=== PATIENT | female | born 1975 | race Caucasian/White ===

== ENCOUNTER → 2016-12-03 | Outpatient (CLI) | payer OTHER ==
[~2016-12-03] MED LIST: PRENTAB26 PO
[2016-12-03 10:12] LABS: BASO % 0.2 %; BASO ABS # 0.02 K/uL (0-0.2); COMPLETE YES; EOS % 0.6 %; HEMATOCRIT 37.7 % (37-47); IG% 0.4 %; LYMPH % 22.5 %; LYMPH ABS # 2.45 K/uL (1.2-3.4); MEAN CELL VOLUME 88.5 fL (80-100); MEAN PLATELET VOLUME 9.1 fL (7.4-10.4); NEUT % 70.3 %; PLATELET COUNT 293 K/uL (130-400); RED BLOOD COUNT 4.26 M/uL (4.2-5.4); WHITE BLOOD COUNT 10.88 K/uL (4.8-10.8)
[2016-12-06 12:24] LABS: CHLAMYDIA TRACH RNA*** NOT DETECTED (NOT DETECTED); GC (NEIS GONORRHOEAE)RNA** NOT DETECTED (NOT DETECTED)
== END | disposition home or self-care (01) ==
LOC: C.LAB1850 09:00
PROVIDERS: ATTEND Obstetrics & Gynecology
DX: O09.529 Supervision of elderly multigravida, unspecified trimester (principal)

== ENCOUNTER → 2016-12-03 | Outpatient (CLI) | payer OTHER | END | disposition home or self-care (01) | LOC: C.PAPS 11:37 | PROVIDERS: ATTEND Obstetrics & Gynecology | DX: O09.529 Supervision of elderly multigravida, unspecified trimester (principal) ==

== ENCOUNTER → 2016-12-24 | Outpatient (CLI) | payer OTHER ==
[2016-12-26 14:51] LABS: AFP CONCENTRATION 62.8 NG/ML; AFP MULTIPLE OF MEDIAN 2.52; AFPTS GESTATIONAL AGE 16.4 WEEKS; AFPTS INSULIN DEP DIABETIC? YES; AFPTS MATERNAL WT 211 LBS; ALPHA-FETOPROTEIN RACE CAUCASIAN=W; HISTORY OF NTD NO; REPEAT SAMPLE? NO
== END | disposition home or self-care (01) ==
LOC: C.LAB1850 09:23 → EDSTATUS 12-27 10:46
PROVIDERS: ATTEND Obstetrics & Gynecology
DX: O09.529 Supervision of elderly multigravida, unspecified trimester (principal)

== ENCOUNTER → 2017-03-17 | Outpatient (CLI) | payer OTHER ==
[2017-03-17 12:20] LABS: URINE APPEARANCE CLEAR (CLEAR); URINE BILIRUBIN NEG (NEG); URINE COLOR YELLOW; URINE EPITHELIAL CELL AUTO >30 /lpf (0-5); URINE NITRITE NEG (NEG); URINE PH 6.5 (4.5-7.5); URINE SPECIFIC GRAVITY 1.017 (1.000-1.030); UROBILINOGEN NEG (NEG)
[2017-03-17 12:22] LABS: MANUAL MICROSCOPIC REQUIRED? NO; REVIEW REQ? NO
== END | disposition home or self-care (01) ==
LOC: C.LABSPEC 12:00
PROVIDERS: ATTEND Obstetrics & Gynecology
DX: O24.410 Gestational diabetes mellitus in pregnancy, diet controlled (principal); Z3A.00 Weeks of gestation of pregnancy not specified

== ENCOUNTER → 2017-03-18 | Outpatient (CLI) | payer OTHER ==
[2017-03-18 11:18] LABS: PATIENT HEIGHT 157.5 cm
[2017-03-18 13:02] LABS: HEMATOCRIT 33.1 % (37-47); MEAN CELL VOLUME 91.9 fL (80-100); MEAN CORPUSCULAR HEMOGLOBIN 31.7 pg (25-34); MEAN CORPUSCULAR HGB CONC 34.4 g/dl (32-36); PLATELET COUNT 327 K/uL (130-400); WHITE BLOOD COUNT 13.49 K/uL (4.8-10.8)
[2017-03-18 13:43] LABS: ALKALINE PHOSPHATASE 77 U/L (45-117); ALT/SGPT 15 U/L (12-78); AST/SGOT 13 U/L (15-37); CREATININE 0.74 mg/dl (0.60-1.20)
[2017-03-18 13:48] LABS: URIC ACID 4.6 mg/dl (2.6-7.2)
[2017-03-18 16:33] LABS: CREATININE 0.74 mg/dl (0.6-1.2)
== END | disposition home or self-care (01) ==
LOC: C.LAB1850 11:13
PROVIDERS: ATTEND Obstetrics & Gynecology
DX: O13.9 Gestational [pregnancy-induced] hypertension without significant proteinuria, unspecified trimester (principal)

== ENCOUNTER → 2017-03-24 | Outpatient (CLI) | payer OTHER ==
[2017-03-24 17:37] LABS: HEMATOCRIT 33.5 % (37-47); MEAN CELL VOLUME 91.5 fL (80-100); MEAN CORPUSCULAR HEMOGLOBIN 31.4 pg (25-34); MEAN CORPUSCULAR HGB CONC 34.3 g/dl (32-36); PLATELET COUNT 335 K/uL (130-400); RED BLOOD COUNT 3.66 M/uL (4.2-5.4); WHITE BLOOD COUNT 12.06 K/uL (4.8-10.8)
[2017-03-24 18:55] LABS: ALKALINE PHOSPHATASE 82 U/L (45-117); ALT/SGPT 19 U/L (12-78); AST/SGOT 16 U/L (15-37)
== END | disposition home or self-care (01) ==
LOC: C.LAB1850 16:50
PROVIDERS: ATTEND Obstetrics & Gynecology
DX: O13.3 Gestational [pregnancy-induced] hypertension without significant proteinuria, third trimester (principal)

== ENCOUNTER → 2017-03-31 | Outpatient (CLI) | payer OTHER ==
[2017-03-31 17:22] LABS: HEMATOCRIT 32.3 % (37-47); MEAN CELL VOLUME 90.2 fL (80-100); MEAN CORPUSCULAR HEMOGLOBIN 30.4 pg (25-34); MEAN CORPUSCULAR HGB CONC 33.7 g/dl (32-36); MEAN PLATELET VOLUME 8.8 fL (7.4-10.4); PLATELET COUNT 314 K/uL (130-400); RED BLOOD COUNT 3.58 M/uL (4.2-5.4); WHITE BLOOD COUNT 11.86 K/uL (4.8-10.8)
[2017-03-31 17:56] LABS: ALKALINE PHOSPHATASE 79 U/L (45-117); ALT/SGPT 17 U/L (12-78); AST/SGOT 14 U/L (15-37)
== END | disposition home or self-care (01) ==
LOC: C.LAB1850 16:31
PROVIDERS: ATTEND Obstetrics & Gynecology
DX: O13.3 Gestational [pregnancy-induced] hypertension without significant proteinuria, third trimester (principal)

== ENCOUNTER → 2017-04-21 | Outpatient (CLI) | payer OTHER ==
[2017-04-21 12:31] LABS: HEMATOCRIT 33.8 % (37-47); MEAN CELL VOLUME 91.4 fL (80-100); MEAN CORPUSCULAR HEMOGLOBIN 30.3 pg (25-34); MEAN CORPUSCULAR HGB CONC 33.1 g/dl (32-36); MEAN PLATELET VOLUME 9.2 fL (7.4-10.4); PLATELET COUNT 326 K/uL (130-400); WHITE BLOOD COUNT 10.17 K/uL (4.8-10.8)
[2017-04-21 13:42] LABS: ALKALINE PHOSPHATASE 90 U/L (45-117); ALT/SGPT 16 U/L (12-78); AST/SGOT 13 U/L (15-37)
== END | disposition home or self-care (01) ==
LOC: C.LAB1850 10:35
PROVIDERS: ATTEND Obstetrics & Gynecology
DX: O13.3 Gestational [pregnancy-induced] hypertension without significant proteinuria, third trimester (principal)

== ENCOUNTER → 2017-04-29 | Outpatient (CLI) | payer OTHER ==
[2017-04-29 17:15] LABS: BASO % 0.2 %; BASO ABS # 0.02 K/uL (0-0.2); COMPLETE YES; EOS % 0.7 %; HEMATOCRIT 34.3 % (37-47); IG% 0.4 %; LYMPH % 19.4 %; LYMPH ABS # 2.23 K/uL (1.2-3.4); MEAN CORPUSCULAR HEMOGLOBIN 30.8 pg (25-34); MEAN CORPUSCULAR HGB CONC 33.8 g/dl (32-36); MEAN PLATELET VOLUME 9.4 fL (7.4-10.4); MONO % 8.6 %; NEUT % 70.7 %; PLATELET COUNT 306 K/uL (130-400); RED BLOOD COUNT 3.77 M/uL (4.2-5.4); WHITE BLOOD COUNT 11.51 K/uL (4.8-10.8)
[2017-04-29 17:38] LABS: ALKALINE PHOSPHATASE 111 U/L (45-117); ALT/SGPT 18 U/L (12-78); AST/SGOT 20 U/L (15-37)
== END | disposition home or self-care (01) ==
LOC: C.LAB1850 16:40
PROVIDERS: ATTEND Obstetrics & Gynecology
DX: O14.00 Mild to moderate pre-eclampsia, unspecified trimester (principal)

== ENCOUNTER → 2017-05-06 | Outpatient (CLI) | payer OTHER | END | disposition home or self-care (01) | LOC: C.LABSPEC 17:43 | PROVIDERS: ATTEND Obstetrics & Gynecology | DX: O24.410 Gestational diabetes mellitus in pregnancy, diet controlled (principal); Z3A.00 Weeks of gestation of pregnancy not specified ==

== ENCOUNTER → 2017-05-13 | Outpatient (CLI) | payer OTHER ==
[2017-05-13 13:30] LABS: HEMATOCRIT 34.1 % (37-47); MEAN CELL VOLUME 90.5 fL (80-100); MEAN CORPUSCULAR HEMOGLOBIN 30.5 pg (25-34); MEAN CORPUSCULAR HGB CONC 33.7 g/dl (32-36); MEAN PLATELET VOLUME 9.4 fL (7.4-10.4); PLATELET COUNT 343 K/uL (130-400); RED BLOOD COUNT 3.77 M/uL (4.2-5.4); WHITE BLOOD COUNT 10.21 K/uL (4.8-10.8)
[2017-05-13 13:52] LABS: ALT/SGPT 18 U/L (12-78); BLOOD UREA NITROGEN 9 mg/dl (7-18); BUN/CREATININE RATIO 17.6 (10-20); CARBON DIOXIDE 23 mmol/L (21-32); CHLORIDE 107 mmol/L (98-107); GLUCOSE 83 mg/dl (70-99); POTASSIUM 3.6 mmol/L (3.5-5.1); SODIUM 141 mmol/L (136-145)
[2017-05-13 13:54] LABS: CALCIUM 8.7 mg/dl (8.5-10.1)
[2017-05-13 13:55] LABS: ALB/GLOB RATIO 0.5 (0.9-2); ALKALINE PHOSPHATASE 123 U/L (45-117); AST/SGOT 14 U/L (15-37)
== END | disposition home or self-care (01) ==
LOC: C.LAB1850 11:38
PROVIDERS: ATTEND Obstetrics & Gynecology
DX: O14.03 Mild to moderate pre-eclampsia, third trimester (principal)

== ENCOUNTER 2017-05-21 19:00 | Outpatient (CLI) | payer OTHER ==
[~2017-05-21] VITALS: Ht 157.5 cm; Wt 100.0 kg
[2017-05-21 20:54] VITALS: Ht 157.5 cm; Wt 100.0 kg
[2017-05-22] MEDS ORDERED: PRENTAB26 PO (08:15)
== END 2017-05-21 21:20 | disposition home or self-care (01) ==
LOC: C.OPB 19:00 → C.LD 19:00 → C.OPB 21:20
PROVIDERS: ATTEND Obstetrics & Gynecology
DX: O14.03 Mild to moderate pre-eclampsia, third trimester (principal); O24.419 Gestational diabetes mellitus in pregnancy, unspecified control

== ENCOUNTER 2017-05-22 07:52 | Inpatient (IN) | payer OTHER ==
[2017-05-21] MEDS: DOCUSATE SODIUM 100 MG CAP PO SCH (22:00)
[~2017-05-22] VITALS: Ht 157.5 cm; Wt 97.7 kg
[2017-05-22] MEDS ORDERED: OXYTOCIN 30 UNITS/500ML NSS IV PRN ×2 (08:00→17:30)
[2017-05-22] MEDS ORDERED: LACTATED RINGER'S 1000ML 1,000 ML IV PRN (08:00)
[2017-05-22] MEDS ORDERED: LACTATED RINGER'S 1000ML 500 ML IV PRN (08:00)
[2017-05-22] MEDS ORDERED: PRENTAB26 PO (08:15)
[2017-05-22] MEDS ORDERED: LACTATED RINGER'S 1000ML 1,000 ML IV SCH (08:30)
[2017-05-22 08:37] LABS: HEMATOCRIT 34.6 % (37-47); MEAN CELL VOLUME 89.4 fL (80-100); MEAN CORPUSCULAR HEMOGLOBIN 29.7 pg (25-34); MEAN CORPUSCULAR HGB CONC 33.2 g/dl (32-36); MEAN PLATELET VOLUME 9.3 fL (7.4-10.4); PLATELET COUNT 285 K/uL (130-400); RED BLOOD COUNT 3.87 M/uL (4.2-5.4); WHITE BLOOD COUNT 13.25 K/uL (4.8-10.8)
[2017-05-22 09:07] VITALS: Ht 157.5 cm; Wt 97.7 kg
[2017-05-22] MEDS ORDERED: BENZOCAINE 20% AER SPR 82.5 GM CAN EXT PRN (17:30)
[2017-05-22] MEDS ORDERED: SUPERCREAM 0.870 % 15GM JAR EXT PRN (17:30)
[2017-05-22] MEDS ORDERED: LANOLIN OINT EXT PRN ×2 (17:30)
[2017-05-22] MEDS ORDERED: HYDROCORTISONE ACETATE 25 MG SUPP PR PRN (17:30)
[2017-05-22] MEDS ORDERED: OXYCODONE/ACETAMINOPHEN 5-325 TAB PO PRN (17:30)
[2017-05-22 20:45] VITALS: BP 149/95; PULSE 95; TEMP 36.9
--- NOTE | 2017-05-22 23:08 | DELIVERY SUMMARY ---
DATE OF OPERATION: 05/22/2017 PREDELIVERY DIAGNOSES: 1. 42-year-old G5, P3-0-1-3 at 37 weeks 5 days. 2. Preeclampsia without severe features. 3. Gestational diabetes mellitus, diet controlled. 4. Positive alpha fetoprotein for neural tube defects, normal anatomy scan on ultrasound per [facility]. 5. Advanced maternal age. POSTDELIVERY DIGNOSES: Same. PROCEDURE: Spontaneous vaginal delivery. FINDINGS: Viable female , Apgars 8 and 9, weight pending. Please see nursery notes. EBL: 300ml DESCRIPTION OF PROCEDURE: The patient progressed to complete and began to push. She spontaneously vaginally delivered a viable female from the cephalic presentation. The head delivered, followed by the anterior shoulder, followed by the posterior shoulder, followed by the body. The baby was warmed and dried and a spontaneous cry was heard. Using delayed cord clamping technique, the cord was doubly clamped and cut. Cord blood was obtained. The placenta was then delivered spontaneously intact with a 3-vessel cord. Pitocin was given. The uterus began to become firm. The uterus and vagina were swept of all clots and debris. The cervix, vagina and perineum were inspected and a superficial laceration was noted. This was hemostatic and patient elected to forgo repair. Excellent hemostasis was again noted. Sponge and instrument counts were correct at the conclusion of the delivery, x2. Mother and baby recovered in stable and good condition in the room. I attest to the content of the Intraoperative Record and any orders documented therein. Any exceptions are noted below. HERIBERTO
[2017-05-22 23:35] VITALS: BP 147/98; PULSE 77; TEMP 36.4; O2SAT 97
[2017-05-23 04:20] VITALS: BP 132/89; PULSE 84; TEMP 36.7; O2SAT 98
[2017-05-23] MEDS: IBUPROFEN 600 MG TAB PO PRN ×2 (04:33→19:54)
[2017-05-23 07:11] LABS: HEMATOCRIT 30.9 % (37-47)
--- NOTE | 2017-05-23 07:22 | Progress Note ---
Subjective May 23, 2017. Subjective conversation w/ patient, physical exam Ambulation: ambulating normally Voiding: no voiding problems Passing Gas: Yes Diet Tolerance: Regular Diet Lochia: Moderate Feeding Type: Breast Feeding Pain: controlled Review of Systems Constitutional: No problem reported Respiratory: No problem reported Cardiac: No problem reported Breast: No problem reported Abdomen: No problem reported Female : No problem reported Objective Vital Signs Date Time Temp Pulse Resp B/P (MAP) Pulse Ox O2 Delivery O2 Flow Rate FiO2 05/23/17 04:20 36.7 84 18 132/89 05/23/17 04:20 36.7 84 18 132/89 (103) 98 Room Air 05/22/17 23:35 Room Air 05/22/17 23:35 36.4 77 18 147/98 (114) 97 Room Air 05/22/17 20:45 36.9 95 18 149/95 Physical Exam General Appearance: WELL-APPEARING, NO APPARENT DISTRESS Respiratory/Chest: no respiratory distress Cardiovascular: regular rate, rhythm Abdomen: non tender, soft Fundus: Firm Extremities: normal inspection, no calf tenderness Laboratory Results Last 24 Hours Test 05/22/17 08:20 05/22/17 09:02 05/22/17 11:11 05/22/17 13:03 White Blood Count 13.25 K/uL Red Blood Count 3.87 M/uL Hemoglobin 11.5 g/dL Hematocrit 34.6 % Mean Corpuscular Volume 89.4 fL Mean Corpuscular Hemoglobin 29.7 pg Mean Corpuscular Hemoglobin Concent 33.2 g/dl RDW Standard Deviation 42.5 fL RDW Coefficient of Variation 13.1 % Platelet Count 285 K/uL Mean Platelet Volume 9.3 fL Bedside Glucose 98 mg/dl 75 mg/dl 84 mg/dl Test 05/22/17 16:05 05/23/17 06:51 05/23/17 07:06 Bedside Glucose 108 mg/dl Hemoglobin 10.3 g/dL Hematocrit 30.9 % Assessment and Plan Post- Day#: 1 Continue Routine Care: PPD#1 doing well. CMP pending. Continue routine care.
[2017-05-23] MEDS: PRENATAL VITAMIN TAB PO SCH (08:00)
[2017-05-23] MEDS: DOCUSATE SODIUM 100 MG CAP PO SCH ×2 (08:00→19:54)
[2017-05-23 08:15] VITALS: BP 133/90; PULSE 78; TEMP 36.8
[2017-05-23 08:23] LABS: BUN/CREATININE RATIO 15.6 (10-20); CALCIUM 8.6 mg/dl (8.5-10.1); CREATININE 0.54 mg/dl (0.60-1.20); POTASSIUM 3.7 mmol/L (3.5-5.1)
[2017-05-23 08:26] LABS: ALB/GLOB RATIO 0.5 (0.9-2)
[2017-05-23 11:50] VITALS: BP 147/98; PULSE 87; TEMP 36.7
[2017-05-23 15:49] VITALS: BP 130/85; PULSE 87; TEMP 36.9
[2017-05-23] MEDS ORDERED: BISACODYL 5 MG TABEC PO SCH (20:00)
--- NOTE | 2017-05-23 22:58 | Discharge Instructions ---
Discharge Instructions Date of Service May 23, 2017. Admission Reason for Admission: Induction Discharge Discharge Diagnosis / Problem: s/p delivery Discharge Goals Goal(s): Routine recovery after delivery Medications Continue Dispensed Medications: supercream, dermaplast, tucks, lansinoh Activity Recommendations Activity Limitations: as noted below . Instructions / Follow-Up Instructions / Follow-Up ACTIVITY RECOMMENDATIONS: * Gradual return to full activity over the next 2-3 weeks. * No lifting - nothing heavier than baby over the next 2-3 weeks. * Do not engage in vigorous exercise, sexual activity or sports until cleared by your physician. * Do not drive or operate any motorized equipment until cleared by your physician. * You may shower/bathe daily. MEDICATIONS: For discomfort or pain, you may use Acetaminophen (Tylenol), Ibuprofen (Advil), or Naproxen (Aleve) following the package directions. For constipation you may use Colace following the package directions. BREAST CARE: If you are not breast feeding: * Wear a supportive bra 24 hours a day for one to two weeks. * Avoid stimulating your breasts and nipples as much as possible during the first few weeks after delivery. * When taking a shower, have the warm water hit your back, not breasts. * When your breasts feel full, apply ice packs. Usually three to four times a day helps ease the discomfort. * Take a mild pain medication (Tylenol / Motrin) when you are uncomfortable. If breast feeding: * Use breast milk to lubricate nipples. Lansinoh cream may be used for sore nipples. You do not need to remove cream prior to breast feeding. If using a different brand of cream, check the label for directions regarding removal of cream prior to nursing. * Wear a supportive bra. * If having problems with breasts or breast feeding, call a human resource consultant or your health care provider. EPISIOTOMY CARE: After delivery, if you have an episiotomy (stitches), the following steps will ease discomfort and aid healing. * For the first 24 hours after delivery, place ice packs next to your episiotomy to help reduce swelling. * After the first 24 hour-period, sitz baths, either portable or in the tub, are suggested. A shower with a shower arm sprayed over the episiotomy may be comforting. * Winsome care should be done after each voiding and bowel movement. Squirt warm water from a plastic bottle over the perineum (region of the body between the anus and urinary opening) and pat dry. * Use Dermoplast to ease discomfort. Shake container. [place] directly over the episiotomy. Place a Tucks on a clean sanitary pad next to your episiotomy. SPECIAL CARE INSTRUCTIONS: When you are discharged from the hospital, it is important for you to follow the instructions listed below: * During the first week at home, you should be able to care for yourself and your baby. In addition, the usual light household activities are encouraged. * Limit your activities to the way you feel. Do not try to clean the house or move furniture. Be sensible. * If you actively engage in sports and have done so up until the time of your delivery, you may resume these activities as soon as you feel able. This may take up to one month or even longer. Use good judgment. * Continue to take your vitamins for at least six weeks after the of your baby. * Your diet need not be limited unless you were on a special diet before your delivery. Breast-feeding mothers need around 2500 calories per day and at least 64-80 ounces of fluid per day (8 to 10 glasses). * You should eat foods from the four major food groups. Crash diets or fad diets are to be avoided. Eating lean meats, fresh fruits and vegetables, low-fat dairy products, high fiber foods and a regular exercise program, will help you get back to your pre- weight without putting your health at risk. * Constipation is sometimes a problem after delivery. Take a mild laxative as needed. If breast feeding, Milk of Magnesia is acceptable to use. You may use a suppository or Fleets enema if no episiotomy. * A daily shower or tub bath is suggested. Be sure to thoroughly and gently dry the perineum. * A bloody vaginal discharge will usually continue until around four weeks post . A small amount of bleeding may continue for as long as six weeks. Vaginal discharge changes from the bright red bleeding after delivery to pink then brownish and finally yellowish-pink before becoming white and disappearing. * Bleeding may increase with activity. Your first period may come in 4-8 weeks. If you are breast feeding, your period may be delayed even longer. * Ivalee (sex) can begin whenever both you and your partner feel comfortable and do not have any form of genital infection. It is recommended that you wait at least six weeks for internal and external healing to occur. If you have questions, please talk to your health care practitioner. A condom should be used to prevent infection and . * Foreplay, gentle intercourse and lubrication is very important the first several times to prevent pain. A water-based lubricant such as K-Y jelly or Astroglide may be used. * If you have RH negative blood and your baby is RH positive, you will receive RHOGAM by injection prior to discharge. The nurse will give you a card to keep with you that has the date and place that you received RHOGAM after delivery. * During your care, you had a Rubella screen done to check for the presence of rubella antibodies in your blood. If your test was negative, you will receive a Rubella vaccine prior to discharge. This vaccine may cause a fever, soreness at the injection site and flu-like symptoms. If these symptoms persist, notify your health care practitioner. is not advised for one month after a Rubella vaccine. * Verbalizes understanding of car seat law as reviewed with patient nursing. * Car Seat hand-out given and reviewed with patient by nursing. * Shaken baby information reviewed with patient by nursing. Call you doctor if: * Heavy bleeding (saturating several pads an hour) or passing clots the size of your fist. * A fever >101 degrees F (38.3 degrees C) on two occasions four hours apart and /or chills. * Unusual pain in the pelvic or vaginal areas. * "Baby Blues" lasting longer than two weeks. If you have any questions or concerns, call your health care practitioner at . FOLLOW UP VISIT: * Please call the office at to schedule a 6 week examination. It is important you keep this appointment. It is important for you to make arrangements for either yearly or twice yearly check-ups thereafter. Current Hospital Diet Patient's current hospital diet: Regular OB Diet Discharge Diet Recommended Diet: Regular Diet Pending Studies Studies pending at discharge: no Medical Emergencies . Who to Call and When: Medical Emergencies: If at any time you feel your situation is an emergency, please call 911 immediately. . Non-Emergent Contact Non-Emergency issues call your: Rod Buster Helper . . "Provider Documentation" section prepared by Peyton Ashford. . VTE Core Measure Inpt VTE Proph given/why not?: Treatment not indicated
[2017-05-23 23:45] VITALS: BP 134/84; PULSE 83; TEMP 36.7
--- NOTE | 2017-05-24 06:46 | Progress Note ---
Subjective May 24, 2017. Subjective conversation w/ patient, physical exam Ambulation: ambulating normally Voiding: no voiding problems Diet Tolerance: Regular Diet Lochia: Small Feeding Type: Breast Feeding Pain: no issues Comment: bottle too Objective Vital Signs Date Time Temp Pulse Resp B/P (MAP) Pulse Ox O2 Delivery O2 Flow Rate FiO2 05/23/17 23:45 Room Air 05/23/17 23:45 36.7 83 20 134/84 (101) Room Air 05/23/17 15:49 36.9 87 20 130/85 (100) Room Air 05/23/17 15:45 Room Air 05/23/17 11:50 36.7 87 20 147/98 (114) 05/23/17 08:15 36.8 78 20 133/90 (104) Physical Exam General Appearance: WELL-APPEARING, WD/WN, NO APPARENT DISTRESS Respiratory/Chest: lungs clear Cardiovascular: regular rate, rhythm Abdomen: non tender, soft Fundus: Firm, Relation to Umbilicus (2 down) Extremities: non-tender Laboratory Results Last 24 Hours Test 05/23/17 06:51 05/23/17 07:20 Hemoglobin 10.3 g/dL Hematocrit 30.9 % Sodium Level 143 mmol/L Potassium Level 3.7 mmol/L Chloride Level 110 mmol/L Carbon Dioxide Level 23 mmol/L Anion Gap 10.0 mmol/L Blood Urea Nitrogen 8 mg/dl Creatinine 0.54 mg/dl Est Creatinine Clear Calc Drug Dose 149.7 ml/min Estimated GFR () 135.8 Estimated GFR (Non- 117.2 BUN/Creatinine Ratio 15.6 Random Glucose 77 mg/dl Calcium Level 8.6 mg/dl Total Bilirubin 0.2 mg/dl Aspartate Amino Transf (AST/SGOT) 19 U/L Alanine Aminotransferase (ALT/SGPT) 16 U/L Alkaline Phosphatase 114 U/L Total Protein 6.4 gm/dl Albumin 2.2 gm/dl Globulin 4.2 gm/dl Albumin/Globulin Ratio 0.5 Assessment and Plan Post- Day#: 2 Continue Routine Care: stable, ready for d/c. f/u 6wks pp check. instructions reviewed.
[2017-05-24] MEDS: DOCUSATE SODIUM 100 MG CAP PO SCH (07:36)
[2017-05-24] MEDS: PRENATAL VITAMIN TAB PO SCH (07:36)
[2017-05-24 07:45] VITALS: BP 142/96; PULSE 90; TEMP 36.8
[2017-05-24 11:15] VITALS: BP_DIAS 96; PULSE 90; TEMP 36.8
== END 2017-05-24 11:30 | disposition home or self-care (01) | DRG 775 ==
LOC: C.LD 07:52 → C.OBG 20:32
PROVIDERS: ADMIT Obstetrics & Gynecology; ATTEND Obstetrics & Gynecology
PROC: 10E0XZZ Delivery of Products of Conception, External Approach (ICD-10-PCS; principal; 2017-05-22)
DX: O14.14 Severe pre-eclampsia complicating childbirth (principal); O24.420 Gestational diabetes mellitus in childbirth, diet controlled; O09.523 Supervision of elderly multigravida, third trimester; O28.8 Other abnormal findings on antenatal screening of mother; R77.2 Abnormality of alphafetoprotein; Z3A.37 37 weeks gestation of pregnancy; Z37.0 Single live birth

== ENCOUNTER 2017-06-27 00:42 | Emergency (ER) | payer OTHER ==
[~2017-06-27] VITALS: Ht 157.5 cm; Wt 91.0 kg
[2017-06-27 00:58] VITALS: TEMP 36.4; Ht 157.5 cm; Wt 91.0 kg
[2017-06-27] MEDS ORDERED: SODIUM CHLORIDE 0.9% 1000ML 1,000 ML IV STA (01:19)
[2017-06-27] MEDS ORDERED: ONDANSETRON INJ 2 MG/ML 2 ML VIAL IV STA (01:19)
[2017-06-27 01:26] LABS: BASO % 0.1 %; BASO ABS # 0.02 K/uL (0-0.2); COMPLETE YES; EOS % 0.3 %; HEMATOCRIT 41.2 % (37-47); IG% 0.5 %; LYMPH % 16.7 %; LYMPH ABS # 2.44 K/uL (1.2-3.4); MEAN CELL VOLUME 89.8 fL (80-100); MEAN CORPUSCULAR HEMOGLOBIN 30.3 pg (25-34); MEAN CORPUSCULAR HGB CONC 33.7 g/dl (32-36); MEAN PLATELET VOLUME 8.9 fL (7.4-10.4); MONO % 7.1 %; NEUT % 75.3 %; PLATELET COUNT 275 K/uL (130-400); RED BLOOD COUNT 4.59 M/uL (4.2-5.4); WHITE BLOOD COUNT 14.59 K/uL (4.8-10.8)
[2017-06-27 01:56] VITALS: O2SAT 96
[2017-06-27 02:30] LABS: ALT/SGPT 25 U/L (12-78); AST/SGOT 15 U/L (15-37); BLOOD UREA NITROGEN 16 mg/dl (7-18); BUN/CREATININE RATIO 19.9 (10-20); CALCIUM 8.3 mg/dl (8.5-10.1); CARBON DIOXIDE 24 mmol/L (21-32); CHLORIDE 114 mmol/L (98-107); GLUCOSE 150 mg/dl (70-99); POTASSIUM 3.2 mmol/L (3.5-5.1); SODIUM 144 mmol/L (136-145)
[2017-06-27 02:33] LABS: ALKALINE PHOSPHATASE 94 U/L (45-117)
[2017-06-27] MEDS ORDERED: MECLIZINE HCL 25 MG TAB PO STA (02:52)
--- NOTE | 2017-06-27 04:23 | EMERGENCY ROOM VISIT NOTE ---
History Report prepared by Adarshibxiomara: Reyes oBwles Under the Supervision of: Dr. Hong Boyer D.O. First contact with patient: 01:14 Chief Complaint: SYNCOPE (NEAR SYNCOPE) Stated Complaint: 5 WKS PP; DIZZINESS, VOMITING, HIGH BP History of Present Illness The patient is a 42 year old female who presents to the Emergency Room with complaints of a near-syncopal episode occurring shortly prior to arrival. She states that she was driving home from work when she suddenly began feeling lightheaded. She states that she felt nauseous and chills at the time. The patient states that she vomited upon arriving home. She states that she still feels dizzy. She did not actually lose consciousness. The patient is 5 weeks post-. She notes that she had mild preeclampsia during the . She states that the delivery was vaginal. The patient states that she has had steady vaginal bleeding since the . She is currently breast feeding. Source of History: patient Onset: Shortly prior to arrival Quality: other (near-syncope) Timing: other (episode) Associated Symptoms: + chills, + nausea, + vomiting, No LOC Note: The patient also complains of dizziness. Review of Systems See HPI for pertinent positives and negatives. A total of ten systems were reviewed and were otherwise negative. Past Medical & Surgical Medical Problems: (1) Mild preeclampsia Family History No pertinent family history stated. Social History Smoking Status: Current Every Day Smoker Housing Status: lives with family Occupation Status: employed Current/Historical Medications Scheduled Multivit/Min/Iron/Fol Ac/Pren ( Vitamin), 1 TAB PO DAILY Allergies Coded Allergies: Codeine (Unverified Adverse Reaction, Intermediate, GI SYMPTOMS, 06/27/17) nausea Physical Exam Vital Signs Date Time Temp Pulse Resp B/P (MAP) Pulse Ox O2 Delivery O2 Flow Rate FiO2 06/27/17 02:41 87 18 97 Room Air 06/27/17 01:58 79 06/27/17 01:56 96 Room Air 06/27/17 00:58 36.4 76 20 143/99 97 Room Air Physical Exam GENERAL: Awake, alert, well-appearing, in no distress, diaphoretic HENT: Normocephalic, atraumatic. Oropharynx unremarkable. EYES: Normal conjunctiva. Sclera non-icteric. NECK: Supple. No nuchal rigidity. FROM. No JVD. RESPIRATORY: Clear to auscultation. CARDIAC: Regular rate, normal rhythm. Extremities warm and well perfused. Pulses equal. ABDOMEN: Soft, non-distended. No tenderness to palpation. No rebound or guarding. No masses. RECTAL: Deferred. MUSCULOSKELETAL: Chest examination reveals no tenderness. The back is symmetrical on inspection without obvious abnormality. There is no CVA tenderness to palpation. No joint edema. LOWER EXTREMITIES: Calves are equal size bilaterally and non-tender. No edema. No discoloration. NEURO: Normal sensorium. No sensory or motor deficits noted. SKIN: No rash or jaundice noted. Medical Decision & Procedures ER Provider Diagnostic Interpretation: CT results per statrad and my review. CT HEAD: No acute intracranial hemorrhage. No evidence of intracranial mass, extra-axial fluid collection, or acute territorial infarct. Visualized paranasal sinuses and mastoid air cells are clear. Laboratory Results 06/27/17 01:15 Red Blood Count 4.59, Mean Corpuscular Volume 89.8, Mean Corpuscular Hemoglobin 30.3, Mean Corpuscular Hemoglobin Concent 33.7, Mean Platelet Volume 8.9, Neutrophils (%) (Auto) 75.3, Lymphocytes (%) (Auto) 16.7, Monocytes (%) (Auto) 7.1, Eosinophils (%) (Auto) 0.3, Basophils (%) (Auto) 0.1, Neutrophils # (Auto) 10.96, Lymphocytes # (Auto) 2.44, Monocytes # (Auto) 1.04, Eosinophils # (Auto) 0.05, Basophils # (Auto) 0.02 06/27/17 01:15 Test 06/27/17 01:15 White Blood Count 14.59 K/uL (4.8-10.8) Red Blood Count 4.59 M/uL (4.2-5.4) Hemoglobin 13.9 g/dL (12.0-16.0) Hematocrit 41.2 % (37-47) Mean Corpuscular Volume 89.8 fL (80-100) Mean Corpuscular Hemoglobin 30.3 pg (25-34) Mean Corpuscular Hemoglobin Concent 33.7 g/dl (32-36) Platelet Count 275 K/uL (130-400) Mean Platelet Volume 8.9 fL (7.4-10.4) Neutrophils (%) (Auto) 75.3 % Lymphocytes (%) (Auto) 16.7 % Monocytes (%) (Auto) 7.1 % Eosinophils (%) (Auto) 0.3 % Basophils (%) (Auto) 0.1 % Neutrophils # (Auto) 10.96 K/uL (1.4-6.5) Lymphocytes # (Auto) 2.44 K/uL (1.2-3.4) Monocytes # (Auto) 1.04 K/uL (0.11-0.59) Eosinophils # (Auto) 0.05 K/uL (0-0.5) Basophils # (Auto) 0.02 K/uL (0-0.2) RDW Standard Deviation 44.2 fL (36.4-46.3) RDW Coefficient of Variation 13.4 % (11.5-14.5) Immature Granulocyte % (Auto) 0.5 % Immature Granulocyte # (Auto) 0.08 K/uL (0.00-0.02) Anion Gap 6.0 mmol/L (3-11) Est Creatinine Clear Calc Drug Dose 97.1 ml/min Estimated GFR () 106.1 Estimated GFR (Non- 91.6 BUN/Creatinine Ratio 19.9 (10-20) Calcium Level 8.3 mg/dl (8.5-10.1) Total Bilirubin 0.2 mg/dl (0.2-1) Direct Bilirubin < 0.1 mg/dl (0-0.2) Aspartate Amino Transf (AST/SGOT) 15 U/L (15-37) Alanine Aminotransferase (ALT/SGPT) 25 U/L (12-78) Alkaline Phosphatase 94 U/L (45-117) Total Protein 7.3 gm/dl (6.4-8.2) Albumin 3.3 gm/dl (3.4-5.0) Laboratory results reviewed by me Medications Administered Medications (Trade) Dose Ordered Sig/Jorge Route Start Time Stop Time Status Last Admin Dose Admin Ondansetron HCl (Zofran Inj) 4 mg NOW STAT IV 06/27/17 01:19 06/27/17 01:22 DC 06/27/17 01:19 4 MG Sodium Chloride 1,000 ml @ 999 mls/hr Q1H1M STAT IV 06/27/17 01:19 06/27/17 02:19 DC 06/27/17 01:19 999 MLS/HR Meclizine HCl (Antivert Tab) 25 mg NOW STAT PO 06/27/17 02:52 06/27/17 02:53 DC 06/27/17 03:02 25 MG ECG Indication: syncope (near) Rate (beats per minute): 84 Rhythm: normal sinus Findings: no acute ischemic change, no ectopy ED Course 0115: The patient was evaluated in room A10. A complete history and physical exam was performed. 0119: Ordered Sodium Chloride 1000 ml @ 999 mls/hr IV, Zofran Inj 4 mg IV. 0252: I reassessed the patient. She feels slightly dizzy but feels much improved. Ordered Antivert Tab 25 mg PO. 0425: Discussed results and discharge instructions: she verbalized understanding and agreement. The patient is ready for discharge. Do not suspect pre-eclampsia; feels better and nonfocal at 422am Medical Decision Differential diagnoses include but are not limited to; syncope, near-syncope, metabolic derangement, vertigo, and post- bleeding. Impression Primary Impression: Dizziness Scribe Attestation The scribe's documentation has been prepared under my direction and personally reviewed by me in its entirety. I confirm that the note above accurately reflects all work, treatment, procedures, and medical decision making performed by me. Departure Information Dispostion Home / Self-Care Referrals No Doctor, Assigned (PCP) Patient Instructions ED Dizziness [facility]
[2017-06-27 04:45] VITALS: BP 152/80; PULSE 91; O2SAT 97
[2017-06-27] MEDS ORDERED: ONDANSETRON 4MG OD TAB ONE (06:06)
--- NOTE | 2017-06-27 07:12 | DIAGNOSTIC IMAGING REPORT ---
CT OF THE HEAD WITHOUT CONTRAST CLINICAL HISTORY: Dizzy. COMPARISON STUDY: No previous studies for comparison. CT DOSE: 638.56 mGycm TECHNIQUE: Helical axial images of the head were obtained without IV contrast. Automated exposure control was utilized for the study. A dose lowering technique was utilized adhering to the principles of ALARA. FINDINGS: No acute intracranial hemorrhage, midline shift or mass effect is present. Brain volume is normal. Ventricular system is normal. Basilar cisterns are patent. There are no extra-axial collections. Sanders-white differentiation is maintained. There are no CT findings to suggest acute dural sinus thrombosis or acute territorial infarct. There is no calvarial abnormality. There is minimal mucosal thickening of the right sphenoid sinus. Mastoid air cells are clear. IMPRESSION: No acute intracranial findings. Electronically signed by: Chetan Pearce M.D. 06/27/2017 7:11 AM Dictated Date/Time: 06/27/2017 7:08 AM
== END 2017-06-27 04:35 | disposition home or self-care (01) ==
LOC: C.EDA 01:20
DX: R42 Dizziness and giddiness (principal); F17.200 Nicotine dependence, unspecified, uncomplicated

== ENCOUNTER 2022-01-15 08:07 | Inpatient (IN) ==
[2022-01-15] MEDS ORDERED: OXYTOCIN 30 UNITS/500 ML BAG IV PRN ×2 (09:18→21:59)
[2022-01-15] MEDS ORDERED: DINOPROSTONE 10 MG INSERT PV ONE (09:37)
[2022-01-15 09:39] LABS: Hematocrit (blood only) 36.3 % (37-47); Hemoglobin 12.4 g/dL (12.0-16.0); Mean Corpuscular Hemoglobin 30.8 pg (25-34); Mean Corpuscular Hgb Conc 34.2 g/dL (32-36); Mean Corpuscular Volume 90.3 fL (80-100); Mean Platelet Volume 9.6 fL (7.4-10.4); Platelet Count 303 K/uL (130-400); RDW Coefficient of Variation 13.6 % (11.5-14.5); Red Blood Count 4.02 M/uL (4.2-5.4)
--- NOTE | 2022-01-15 09:42 | History & Physical Report ---
Date of Service January 15, 2022 Assessment & Plan (1) Chronic hypertension in obstetric context in third trimester: (2) Gestational diabetes mellitus (GDM) affecting fifth : Plan: Induction of labor with Cervidil for ripening Admission and Anticipated Discharge Date Admission Date: January 15, 2022 History of Present Illness Chief Complaint: induction of labor Primary Care Provider: JOLANTA PCP 46 F [id number] at 37.4 weeks admitted for IOL for chronic hypertension and GDM on insuin. GBS is negative. Covid is negative. Allergies Allergy/AdvReac Type Severity Reaction Status Date / Time codeine AdvReac Intermediate GI SYMPTOMS Verified 01/15/22 08:47 morphine AdvReac Gastrointestinal Verified 01/15/22 08:47 Upset Home Medications Medication Instructions Recorded Confirmed Type Multivit/Min/Iron/Fol Ac/Pren 1 tab PO DAILY #0 tab 05/22/17 01/15/22 History ( Vitamin) aspirin 81 mg chewable tablet 81 mg PO DAILY 12/21/21 01/15/22 History labetalol 100 mg tablet 100 mg PO TID 01/15/22 01/15/22 History Patient History Medical History Advanced maternal age (AMA) in Chronic hypertension Was on Lisinopril prior to + HPT Gestational diabetes Insulin controlled HGSIL (high grade squamous intraepithelial dysplasia) Patient to have a repeat colpo with GBS swab. Patient denies them to do biopsy. 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 Review of Systems All systems reviewed & are unremarkable except as noted in HPI & below Physical Exam Constitutional: WD/WN, vitals as above comfortable Eyes: PERRL, conjunctivae normal, anicteric sclerae Respiratory: normal respiratory effort, lungs clear to auscultation Cardiovascular: RRR, no murmur, no edema Skin: no rashes, warm and dry Neurologic: patellar DTR's 2+ bilat, sensation intact Psychiatric: A+Ox3, euthymic affect Genitourinary: no vaginal lesions, no adnexal mass OB Exam Abdomen: + fundal height and + vertex Manual OB Exam: + cervical dilation fingertip, + cervical effacement 50% and + station high cervix firm and posterior Results & Data ([facility]) Vital Signs (Past 12 Hours) Vital Signs Temp Pulse Resp BP 01/15/22 08:22 36.9 C 20 01/15/22 08:19 105 H 140/92 Code Status & VTE Plan VTE Prophylaxis Plan VTE Prophylaxis will be ordered: No Monitoring External Monitor Cat 1
--- NOTE | 2022-01-15 09:53 | Labor Progress Brief Note ---
Date of Service January 15, 2022 Assessment & Plan Admission and Anticipated Discharge Date Admission Date: January 15, 2022 Physical Exam Genitourinary: OB Exam Monitor Tracing: + external FHT monitor used, + external uterine monitor used, + category I and + normal FHT variability Cervidil 10 mg placed vaginally Results & Data ([facility]) Vital Signs (Past 12 Hours) Vital Signs Temp Pulse Resp BP 01/15/22 08:22 36.9 C 20 01/15/22 08:19 105 H 140/92
[2022-01-15] MEDS: LABETALOL HCL 100 MG TAB PO SCH ×2 (13:17→21:50)
--- NOTE | 2022-01-15 21:48 | Labor Progress Brief Note ---
Date of Service January 15, 2022 Assessment & Plan Admission and Anticipated Discharge Date Admission Date: January 15, 2022 Physical Exam Genitourinary: Manual OB Exam: + cervical dilation 2 cm, + cervical effacement 50% and + station high Cervidil pulled out Results & Data ([facility]) Vital Signs (Past 12 Hours) Vital Signs Temp Pulse Resp BP 01/15/22 19:18 82 143/88 H 01/15/22 19:15 36.7 C 18 01/15/22 16:28 36.6 C 85 20 141/79 H 01/15/22 13:18 36.7 C 85 20 146/95 H 01/15/22 11:29 83 142/94 H
[2022-01-15] MEDS: LACTATED RINGER'S 1,000 ML IV PRN (23:47)
[2022-01-16] MEDS: LACTATED RINGER'S 1,000 ML IV PRN (06:30)
--- NOTE | 2022-01-16 06:50 | Labor Progress Brief Note ---
Date of Service January 16, 2022 Assessment & Plan Admission and Anticipated Discharge Date Admission Date: January 15, 2022 Physical Exam Genitourinary: Manual OB Exam: + cervical dilation 5 cm, + cervical effacement 80%, + station -1 and + amniotic fluid clear OB Exam Monitor Tracing: + external FHT monitor used, + external uterine monitor used, + category I and + normal FHT variability Results & Data ([facility]) Vital Signs (Past 12 Hours) Vital Signs Temp Pulse Resp BP 01/16/22 06:28 86 155/90 H 01/16/22 06:27 85 182/90 H 01/16/22 05:37 83 142/86 H 01/16/22 04:31 77 131/88 01/16/22 03:32 78 139/77 01/16/22 03:30 36.6 C 01/16/22 02:31 82 125/82 01/16/22 01:32 87 139/90 01/16/22 00:30 86 130/68 01/15/22 23:30 36.6 C 84 18 145/85 H 01/15/22 19:18 82 143/88 H 01/15/22 19:15 36.7 C 18
[2022-01-16] MEDS ORDERED: LIDOCAINE 1% LOCAL 20 ML VIAL ONE (07:36)
[2022-01-16] MEDS ORDERED: HYDROCORTISONE ACETATE 25 MG SUPP PR PRN (07:42)
[2022-01-16] MEDS ORDERED: OXYTOCIN 30 UNITS/500 ML BAG IV PRN (07:42)
[2022-01-16] MEDS ORDERED: bisacodyL 10 MG SUPP PR PRN (07:42)
[2022-01-16] MEDS ORDERED: ACETAMINOPHEN 325 MG TAB PO PRN (07:42)
[2022-01-16] MEDS ORDERED: DIPHTHERIA/TETANUS/PERTUSSIS 0.5 ML SYR/VIAL IM ONE (07:42)
[2022-01-16] MEDS ORDERED: BENZOCAINE 20% AER SPR 82.5 GM CAN EXT PRN (07:42)
[2022-01-16] MEDS: LABETALOL HCL 100 MG TAB PO SCH ×3 (07:43→20:56)
--- NOTE | 2022-01-16 07:46 | Delivery Summary ---
Vaginal Delivery Summary Date of Service January 16, 2022 Vaginal Delivery Summary Delivery Note Patient called out c/o urge to push. Noted to be complete with head . Delivery Summary: Patient was placed in the dorsal lithotomy position. Upon maternal pushing the head was delivered atraumatically followed by the anterior shoulders, posterior shoulders then the remainder of the infants body. Nucal x1 reduced after delivery. The infants mouth and nose were bulb suction below the level of the perineum. Delayed cord clamping for 1 min. A male infant was delivered weight pending with APGARS of 8 at 1 minute and 9 at 5 minutes. The umbilical cord was clamped times two and cut. The infant was handed off to the awaiting nursing staff. Cord blood was obtained. The placenta delivered intact with three vessel cord. Placenta was not sent to pathology (hold). Thirty units of Pitocin were added to the IV fluid and allowed to run freely. Uterine massage was performed until uterus was deemed firm. Upon inspection of the perineum, vagina and cervix were intact. First degree laceration was noted which was repaired with 3-0 vicryl in figure of 8 fashion to create hemostais. Upon re-inspection the patient was hemostatic. Uterus again massaged and found to be firm. Needle and sponge counts were correct. Patient was stable and allowed to recover in L&D room. Infant was stable and remained in room with mother in the Family Care Unit.
[2022-01-16] MEDS: IBUPROFEN 600 MG TAB PO PRN ×3 (08:52→17:24)
[2022-01-16] MEDS: PRENATAL VITAMIN 1 TAB PO SCH (08:52)
[2022-01-16] MEDS: DOCUSATE SODIUM 100 MG CAP PO SCH ×2 (08:52→22:12)
[2022-01-17] MEDS: IBUPROFEN 600 MG TAB PO PRN ×2 (04:36→09:31)
[2022-01-17 05:57] LABS: Hematocrit (blood only) 33.4 % (37-47); Hemoglobin 11.2 g/dL (12.0-16.0); Mean Corpuscular Hemoglobin 30.4 pg (25-34); Mean Corpuscular Hgb Conc 33.5 g/dL (32-36); Mean Corpuscular Volume 90.5 fL (80-100); Mean Platelet Volume 9.3 fL (7.4-10.4); Platelet Count 293 K/uL (130-400); RDW Coefficient of Variation 13.6 % (11.5-14.5); RDW Standard Deviation 45.2 fL (36.4-46.3); Red Blood Count 3.69 M/uL (4.2-5.4); White Blood Count 11.74 K/uL (4.8-10.8)
--- NOTE | 2022-01-17 07:36 | Obstetrical Progress Note ---
Date of Service January 17, 2022 Assessment & Plan Admission and Anticipated Discharge Date Admission Date: January 15, 2022 Subjective Patient is seen and examined. She feels well, no complaints. Desires d/c Ambulating without dizziness Voiding without difficulty Tolerating regular diet with out N&V Bleeding is minimal No LAWRENCE/ Change in vision/ fever/ chills/ CP/ SOB/ N&V/ Leg pain Breast feeding without problems Vital Signs Temp Pulse Pulse Pulse Resp BP BP 01/17/22 04:25 36.6 C 80 18 138/84 01/16/22 23:40 36.8 C 86 18 147/90 H 01/16/22 19:55 36.5 C 80 18 158/89 H 01/16/22 15:00 36.8 C 95 H 18 156/83 H 01/16/22 11:20 36.7 C 88 89 18 135/84 01/16/22 09:46 78 152/85 H 01/16/22 09:42 18 01/16/22 09:25 85 138/78 01/16/22 09:17 75 129/111 H 01/16/22 09:16 18 01/16/22 08:43 79 18 159/93 H 01/16/22 08:28 18 01/16/22 08:27 77 155/84 H 01/16/22 08:15 18 01/16/22 08:12 72 167/86 H 01/16/22 07:58 78 20 164/80 H 01/16/22 07:42 73 20 172/85 H Pulse Ox 01/17/22 04:25 97 01/16/22 23:40 97 01/16/22 19:55 98 01/16/22 15:00 98 01/16/22 11:20 97 01/16/22 09:46 01/16/22 09:42 01/16/22 09:25 01/16/22 09:17 01/16/22 09:16 01/16/22 08:43 01/16/22 08:28 01/16/22 08:27 01/16/22 08:15 01/16/22 08:12 01/16/22 07:58 01/16/22 07:42 Lab Results 01/15/22 01/15/22 01/15/22 Range/Units 09:25 09:25 09:30 WBC 11.30 H (4.8-10.8) K/uL RBC 4.02 L (4.2-5.4) M/uL Hgb 12.4 (12.0-16.0) g/dL Hct 36.3 L (37-47) % MCV 90.3 (80-100) fL MCH 30.8 (25-34) pg MCHC 34.2 (32-36) g/dL RDW Std Deviation 45.0 (36.4-46.3) fL RDW Coeff of Siria 13.6 (11.5-14.5) % Plt Count 303 (130-400) K/uL MPV 9.6 (7.4-10.4) fL POC Glucose 93 (70-99) mg/dl Blood Type B Positive Antibody Screen NEGATIVE 01/15/22 01/15/22 01/15/22 Range/Units 13:21 17:34 19:32 WBC (4.8-10.8) K/uL RBC (4.2-5.4) M/uL Hgb (12.0-16.0) g/dL Hct (37-47) % MCV (80-100) fL MCH (25-34) pg MCHC (32-36) g/dL RDW Std Deviation (36.4-46.3) fL RDW Coeff of Siria (11.5-14.5) % Plt Count (130-400) K/uL MPV (7.4-10.4) fL POC Glucose 76 179 H 95 (70-99) mg/dl Blood Type Antibody Screen 01/15/22 01/16/22 01/16/22 Range/Units 23:33 03:33 07:16 WBC (4.8-10.8) K/uL RBC (4.2-5.4) M/uL Hgb (12.0-16.0) g/dL Hct (37-47) % MCV (80-100) fL MCH (25-34) pg MCHC (32-36) g/dL RDW Std Deviation (36.4-46.3) fL RDW Coeff of Siria (11.5-14.5) % Plt Count (130-400) K/uL MPV (7.4-10.4) fL POC Glucose 95 89 89 (70-99) mg/dl Blood Type Antibody Screen 01/17/22 Range/Units 05:35 WBC 11.74 H (4.8-10.8) K/uL RBC 3.69 L (4.2-5.4) M/uL Hgb 11.2 L (12.0-16.0) g/dL Hct 33.4 L (37-47) % MCV 90.5 (80-100) fL MCH 30.4 (25-34) pg MCHC 33.5 (32-36) g/dL RDW Std Deviation 45.2 (36.4-46.3) fL RDW Coeff of Siria 13.6 (11.5-14.5) % Plt Count 293 (130-400) K/uL MPV 9.3 (7.4-10.4) fL POC Glucose (70-99) mg/dl Blood Type Antibody Screen PE: General: Alert, orientedx3, NAD Abd: soft, NT, fundus firm, below Umbilicus Perineum intact, Lochia rubra minimal Ext; NT, no edema AP: 46 yo s/p , ppd# 1 VSS Afebrile doing well h/o CHTN, GDM, pending labs Continue routine care All questions were answered Discussed when to call Desires D/C home today Results & Data ([facility]) Vital Signs (Past 12 Hours) Vital Signs Temp Pulse Resp BP Pulse Ox 01/17/22 04:25 36.6 C 80 18 138/84 97 01/16/22 23:40 36.8 C 86 18 147/90 H 97 01/16/22 19:55 36.5 C 80 18 158/89 H 98
[2022-01-17 07:58] LABS: Albumin Globulin Ratio 0.9 (0.9-2); Albumin Level 2.8 gm/dl (3.4-5.0); BUN Creatinine Ratio 28.6 (10-20); Bilirubin,Total 0.2 mg/dl (0.2-1.0); Calcium 7.6 mg/dl (8.5-10.1); Creatinine Clr Calc Pharmacy 157.4 ml/min; Est GFR (African American) 136.4 ml/min; Est GFR (Non-African American) 117.7 ml/min; Potassium 3.7 mmol/L (3.5-5.1); Total Protein 5.8 gm/dl (6.0-8.3)
[2022-01-17] MEDS: LABETALOL HCL 100 MG TAB PO SCH (08:01)
[2022-01-17] MEDS: PRENATAL VITAMIN 1 TAB PO SCH (08:02)
[2022-01-17] MEDS: DOCUSATE SODIUM 100 MG CAP PO SCH ×2 (08:02→08:05)
[2022-01-17] MEDS ORDERED: bisacodyL 5 MG TABEC PO SCH (20:00)
== END 2022-01-17 12:20 | disposition home or self-care (01) | DRG 807 ==
LOC: 4S1 08:07 → 4S2 01-16 11:28